=== PATIENT | female | born 1995 | race Caucasian/White ===

== ENCOUNTER 2017-07-23 13:59 | Emergency (ER) | payer OTHER ==
[2017-07-23 14:30] VITALS: BP 117/72
--- NOTE | 2017-07-23 15:34 | UC ---
Throat Pain/Nasal Reji HPI - HPI Summary HPI Summary: 22 female presents to ED with complaints of throat pain and some "puss stuff" on her left tonsil that began ~ 2 days ago. Patient has tried gargling with salt water without relief. She denies fever/chills, cough and nasal congestion. States maybe some post nasal drip and does have pain with swallowing. Denies fatigue, difficulty breathing and difficulty swallowing. No other complaints. 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 No other known PMHx. - History of Current Complaint Chief Complaint: UCGeneralIllness Stated Complaint: SORE THRAOT,PUSS IN BACK OF THRAOT Time Seen by Provider: 07/23/17 14:47 Hx Obtained From: Patient Hx Last Menstrual Period: 07/14/17 ?: No Onset/Duration: Sudden Onset, Lasting Days, Still Present, Worse Since Severity: Moderate Pain Intensity: 8 Pain Scale Used: 0-10 Numeric Cough: None Associated Signs & Symptoms: Positive: Dysphagia - Epiglottits Risk Factors Epiglottis Risk Factors: Negative - Allergies/Home Medications Allergies/Adverse Reactions: Allergies Allergy/AdvReac Type Severity Reaction Status Date / Time No Known Allergies Allergy Verified 07/23/17 14:20 Home Medications: Home Medications Atorvastatin* [Lipitor*] 20 mg PO BEDTIME 07/23/17 [History Confirmed 07/23/17] Warfarin TAB(*) [Coumadin TAB(*)] 5 mg PO BEDTIME 07/23/17 [History Confirmed ] Warfarin TAB(*) [Coumadin TAB(*)] 7 mg PO BEDTIME 07/23/17 [History Confirmed ] PMH/Surg Hx/FS Hx/Imm Hx Cardiovascular History: Hypertension, Bleeding Disorders Neurological History: 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 - Surgical History Surgical History: Yes Surgery Procedure, Year, and Place: oral surgery x4 - Family History Known Family History: Positive: None - Social History Alcohol Use: None Substance Use Type: None Smoking Status (MU): Never Smoked Tobacco Review of Systems Constitutional: Negative Skin: Negative Eyes: Negative ENT: Sore Throat - swollen tonsil with exudate Respiratory: Negative Cardiovascular: Negative Gastrointestinal: Negative Neurological: Negative All Other Systems Reviewed And Are Negative: Yes Physical Exam Triage Information Reviewed: Yes Appearance: Well-Appearing, No Pain Distress, Well-Nourished Vital Signs: Initial Vital Signs Temp 98.9 F 07/23/17 14:22 Pulse 92 07/23/17 14:22 Resp 16 07/23/17 14:22 BP 117/72 07/23/17 14:22 Pulse Ox 98 07/23/17 14:22 Vital Signs Reviewed: Yes Eyes: Positive: Conjunctiva Clear ENT: Positive: Hearing grossly normal, Pharynx normal, TMs normal, Tonsillar swelling - left, Tonsillar exudate - left, green/yellow appears infected, no sign of periotonsillar abscess at this time. no hot potato voice, uvula midline , airway patent. Negative: Trismus, Muffled/hoarse voice Dental: Positive: Cervical Lymphadenopathy - able to palpate some left sided tonsillar lymphadenopathy. Negative: Percussion Tenderness @ Neck: Positive: Supple, Nontender Respiratory: Positive: Chest non-tender, Lungs clear, Normal breath sounds, No respiratory distress, No accessory muscle use. Negative: Respiratory distress, Decreased breath sounds, Wheezing Cardiovascular: Positive: RRR, No Murmur, Pulses Normal, Brisk Capillary Refill Bowel Sounds: Positive: Present Musculoskeletal: Positive: Strength Intact, ROM Intact Neurological: Positive: Alert, Muscle Tone Normal Psychological: Positive: Normal Response To Family Skin Exam: Normal Throat Pain/Nasal Course/Dx - Course Course Of Treatment: rapid strep obtained due to patient and mother preference, negative. vitals normal. appears to be suffering from tonsillitis. possible stone that became infected or just infected tonsil by PE findings. Will treat with antibiotics to prevent abscess. No sign or concernf for peritonsillar abscess at this time. Follow up with [facility] for re-check. Aware of worsening signs and symptoms to watch out for and to return if occur. Gargle with salt water, drink fluids and chloraseptic spray to numb if desired. - Differential Dx/Diagnosis Differential Diagnosis/HQI/PQRI: Laryngitis, Mononucleosis, Pharyngitis, Tonsillitis Provider Diagnoses: tonsillitis, left - Physician Notification/Consults Discussed Patient Care With: Dr Farmer Discharge - Discharge Plan Condition: Stable Disposition: HOME Prescriptions: Amoxicillin PO (*) [Amoxicillin 500 MG CAP*] 500 mg PO Q12H #20 cap Patient Education Materials: Tonsillitis (ED) Referrals: No Primary Care Phys,NOPCP [Primary Care Provider] - [facility] [Outside] Additional Instructions: Take prescribed antibiotic as directed until entire dose is finished. Recommend taking probiotic or eating palestinian yogurt in between doses to replenish normal josseline. Gargle with salt water multiple times daily. Drink plenty of fluids, stay away from citrus, acidic, spicy foods/drinks. Chloraseptic spray OTC if desired. Follow up with PCP for re-check in a few days. Return or seek medical attention promptly if symptoms worsen or do not improve, (fever, increasing size, difficulty breathing, difficulty swallowing).
== END 2017-07-23 15:37 | disposition home or self-care (01) ==
LOC: UCCORT 13:59
DX: J03.90 Acute tonsillitis, unspecified (principal); I10 Essential (primary) hypertension; Z86.73 Personal history of transient ischemic attack (TIA), and cerebral infarction without residual deficits; Z79.01 Long term (current) use of anticoagulants
CPT/HCPCS: 87651; 99202; G0463